=== PATIENT | male | born 1950 | race Caucasian/White ===

== ENCOUNTER → 2017-07-22 | Outpatient (CLI) | payer MEDICARE ==
[2017-07-22 13:07] LABS: ALT (GPT) 47 U/L (12-78); AST (GOT) 27 U/L (15-37); C-REACTIVE PROTEIN 0.56 MG/DL (0.00-0.30); CHOLESTEROL 168 MG/DL (120-200)
[2017-07-22 13:09] LABS: CHOLESTEROL/ HDL RATIO 4.62 RATIO; HDL CHOLESTEROL 36.3 MG/DL (40.0-60.0); LDL CHOLESTEROL 106 MG/DL (0-99); TRIGLYCERIDES 129 MG/DL (42-150)
[2017-07-22 17:12] LABS: HEMOGLOBIN A1C 6.2 % (4.3-6.0)
== END ==
LOC: CLAB 12:24
PROVIDERS: ATTEND Internal Medicine Interventional Cardiology
DX: I25.10 Atherosclerotic heart disease of native coronary artery without angina pectoris (principal); R73.9 Hyperglycemia, unspecified; E66.09 Other obesity due to excess calories; E72.11 Homocystinuria
CPT/HCPCS: 36415; 80061; 83036; 83090; 84450; 84460; 86140